=== PATIENT | male | born 1990 | race Two or more races ===

== ENCOUNTER 2018-01-21 22:24 | Emergency (ER) | payer MEDICAID, OTHER ==
[~2018-01-21] VITALS: Ht 172.7 cm; Wt 61.2 kg
[2018-01-21] MEDS ORDERED: DiphenhydrAMINE 50mg/ml Inj IVP ONE (22:45)
[2018-01-21] MEDS ORDERED: Solu-MEDROL 125mg Inj IVP ONE (22:45)
--- NOTE | 2018-01-21 22:48 | Emergency Room Report ---
History of Present Illness General Chief Complaint: Allergic Reaction Source: Patient Present Illness HPI Patient reports that he had an incision of his finger infection last Monday was put on 2 different antibiotics and pain medication This morning he woke up to significant rash involving the upper arm chest his body diffusely the area is itchy in nature He did not take the medicine today however he has been taking it over the past week Denies any vomiting or diarrhea denies any chest pain or short of breath Denies any difficulty swallowing or breathing Allergies: Coded Allergies: No Known Allergies (Unverified , 01/21/18) Patient History Past Medical History: see triage record Pertinent Family History: none Reviewed Nursing Documentation: PMH: Agreed; PSxH: Agreed Nursing Documentation-PMH Past Medical History: No Stated History Review of Systems All Other Systems: negative except mentioned in HPI Physical Exam Vital Signs Date Time Temp Pulse Resp B/P (MAP) Pulse Ox O2 Delivery O2 Flow Rate FiO2 01/21/18 22:36 97.8 110 16 120/80 98 Room Air 97.9 Sp02 EP Interpretation: reviewed, normal General Appearance: well appearing, no apparent distress Head: normocephalic, atraumatic Eyes: bilateral eye PERRL, bilateral eye EOMI ENT: hearing grossly normal, normal pharynx, TMs + canals normal, uvula midline Neck: full range of motion, supple, no meningismus, no bony tend Respiratory: lungs clear, normal breath sounds, no rhonchi, no respiratory distress, no retraction, no accessory muscle use Cardiovascular #1: normal peripheral pulses, regular rate, rhythm, no edema, no gallop, no JVD, no murmur Gastrointestinal: normal bowel sounds, non tender, soft, no mass, no organomegaly, non-distended, no guarding, no hernia, no pulsatile mass, no rebound Genitourinary: no CVA tenderness Musculoskeletal: normal inspection Neurologic: oriented x3, responsive, hand sprayer III-XII nml as tested, motor strength/ tone normal, sensory intact Psychiatric: mood/affect normal Skin: other - Maculopapular rash diffuse, upper chest abdomen arms both lower leg, no involvement of the oral mucosa Lymphatic: normal inspection, no adenopathy Medical Decision Making Diagnostic Impression: Primary Impression: Allergic reaction Additional Impression: Medication reaction ER Course Given the patient's general exam and history patient likely is having a reaction to one of the antibiotics Unfortunately not clear which antibiotic Patient however does require aggressive therapy with IV medication including steroids and antihistamine medication patient is observed for a prolonged period of time Did not require epinephrine as there is no airway or oral mucosa involvement after further observation patient has done significantly better and stable for close outpatient follow-up Last Vital Signs Date Time Temp Pulse Resp B/P (MAP) Pulse Ox O2 Delivery O2 Flow Rate FiO2 01/21/18 22:36 97.8 110 16 120/80 98 Room Air 97.9 Status: improved Disposition: HOME, SELF-CARE Condition: Improved Scripts Famotidine (PEPCID AC) 20 Mg Tablet 20 MG PO DAILY, #10 TAB Prov: Harmeet Dominique DO 01/22/18 Diphenhydramine HCl (Benadryl) 25 Mg Capsule 25 MG PO Q6HR for 10 Days, CAP Prov: Harmeet Dominique DO 01/22/18 Prednisone* (PREDNISONE*) 20 Mg Tablet 20 MG ORAL BID, #12 TAB Prov: Harmeet Dominique DO 01/22/18 Additional Instructions: Patient is provided with the discharge instructions notified to follow up with primary doctor in the next 2-3 days otherwise return to the er with any worsening symptoms. Please note that this report is being documented using [employer] technology. This can lead to erroneous entry secondary to incorrect interpretation by the dictating instrument. Harmeet Dominique DO Jan 21, 2018 22:48
[2018-01-21 23:04] VITALS: BP 132/77
[2018-01-22] MEDS ORDERED: PREDNISONE20 MG ORAL (00:17)
[2018-01-22] MEDS ORDERED: PEPCID AC20 M2 PO (00:17)
[2018-01-22] MEDS ORDERED: BENADRYL25 M3 PO (00:17)
[2018-01-22 01:58] VITALS: BP 132/77
== END 2018-01-22 00:29 | disposition home or self-care (01) ==
LOC: EMR 23:00
DX: L27.0 Generalized skin eruption due to drugs and medicaments taken internally (principal); T50.995A Adverse effect of other drugs, medicaments and biological substances, initial encounter; Y92.89 Other specified places as the place of occurrence of the external cause
CPT/HCPCS: 96374; 96375; 99284; J1200; J2930